=== PATIENT | female | born 1985 ===

== ENCOUNTER 2017-06-18 10:19 | Outpatient (CLI) | payer BC ==
--- NOTE | 2017-06-18 11:25 | Mammography Report ---
Right mammogram and right breast ultrasound: Patient presents with a new palpable, nontender, finding at the inferior breast fold. A marker was placed approximately at the area of concern at approximately 6:00 and routine views obtained. This area appears to have been included on the mammogram no findings are noted in this area or elsewhere. The palpable finding by the patient is clearly palpable and movable at the inferior breast fold. Ultrasound demonstrates what may represent the finding has being elongated parallel to breast measuring 14 mm. The echogenicity is identical to adjacent tissue with a questionable of a surrounding lucency. Impressions: Questionable mammographic palpable correlation with ultrasound but no mammographic finding. The ultrasound findings are not suspicious and may represent a lymph node. Recommendation: Clinical followup. The findings and recommendations have been discussed with the patient and she has been notified to contact you if there is any enlargement in the palpable finding. Otherwise, age appropriate mammogram followup. BI-RADS CATEGORY: 2 = Benign ACR BI-RADS MAMMOGRAPHIC CODES: 0 = Needs additional imaging evaluation; 1 = Negative; 2 = Benign; 3 = Probably benign; 4 = Suspicious; 5 = Malignant; 6 = Known biopsy-proven malignancy COMMENT: 1. Dense breast tissue, i.e., adenosis, fibrocystic changes, etc., may obscure an underlying neoplasm. 2. Approximately 10% of cancers are not detected with mammography. 3. A negative mammography report should not delay biopsy if a clinically suspicious mass is present.
== END 2017-06-18 10:20 | disposition home or self-care (01) ==
LOC: SPVWC 10:19
PROVIDERS: ATTEND Obstetrics & Gynecology
DX: N63.10 Unspecified lump in the right breast, unspecified quadrant (principal); R92.8 Other abnormal and inconclusive findings on diagnostic imaging of breast